=== PATIENT | female | born 1995 | race Caucasian/White ===

== ENCOUNTER 2017-03-08 17:14 | Inpatient (IN) ==
[2017-03-08] MEDS ORDERED: LR 3,000 ML ONE (17:51)
[2017-03-08] MEDS ORDERED: KEFZOL 1 GM/D5W 1 GM/50 ML IVPB IV PRN (17:58)
[2017-03-08] MEDS ORDERED: LR 1,000 ML IV SCH ×2 (17:58→19:41)
[2017-03-08] MEDS ORDERED: LR 500 ML IV ONE (17:58)
[2017-03-08] MEDS ORDERED: REGLAN PO ONE (17:58)
[2017-03-08] MEDS ORDERED: PEPCID PO ONE (17:58)
[2017-03-08] MEDS ORDERED: QUELICIN (DOSE) ONE (18:05)
[2017-03-08 18:21] LABS: MANUAL DIFF NEEDED? NO
[2017-03-08] MEDS ORDERED: FENTANYL ONE (18:22)
[2017-03-08] MEDS ORDERED: VERSED ONE (18:24)
[2017-03-08] MEDS ORDERED: DIPRIVAN 1% ONE (18:30)
[2017-03-08] MEDS ORDERED: PITOCIN 20 UNITS/LR 40 UNITS/2,000 ML IV.SOLN ONE (18:31)
[2017-03-08 18:41] LABS: BASO% 0.2 % (0.0-0.8); EOS# 0.05 X1000 (0.0-0.7); EOS% 0.4 % (0.0-10.0); HEMATOCRIT 40.7 % (37.0-47.0); IMM GRAN# 0.05 X1000 (0.0-0.04); IMM GRAN% 0.4 % (0.0-0.5); LYMPH# 1.63 X1000 (1.2-3.4); LYMPH% 12.3 % (20.5-51.1); MCH 30.8 PG (27-31); MCHC 34.4 g/dL (33-37); MCV 89.5 FL (81-99); MONO# 1.05 X1000 (0.11-0.59); MONO% 7.9 % (1.7-9.3); MPV 11.3 FL (7.4-10.4); NEUT% 78.8 % (42.2-75.2); PLT 215 X1000 (130-400); RBC 4.55 XMIL (4.2-5.4)
[2017-03-08] MEDS ORDERED: PEPCID ONE (18:41)
[2017-03-08] MEDS ORDERED: ZOFRAN ONE (18:49)
[2017-03-08] MEDS ORDERED: CYTOTEC PO PRN (19:08)
[2017-03-08] MEDS ORDERED: PITOCIN 20 UNITS/LR 20 UNITS/1,000 ML IV.SOLN IV ONE (19:08)
[2017-03-08] MEDS ORDERED: PERCOCET-5 PO PRN (19:08)
[2017-03-08] MEDS ORDERED: PITOCIN IM PRN (19:08)
[2017-03-08] MEDS ORDERED: HYDROXYZINE PO PRN (19:08)
[2017-03-08] MEDS ORDERED: M-M-R II VACCINE SUBQ ONE (19:08)
[2017-03-08] MEDS ORDERED: PHENERGAN IM PRN (19:08)
[2017-03-08] MEDS ORDERED: DULCOLAX PR PRN (19:08)
[2017-03-08] MEDS ORDERED: BOOSTRIX VACCINE IM ONE (19:08)
[2017-03-08] MEDS ORDERED: HYDROXYZINE IM PRN (19:08)
[2017-03-08] MEDS ORDERED: AMBIEN PO PRN (19:08)
[2017-03-08] MEDS ORDERED: DILAUDID ONE (19:31)
[2017-03-08] MEDS ORDERED: NARCAN IV PRN (19:41)
[2017-03-08] MEDS ORDERED: DILAUDID PCA VIAL IV PRN (19:41)
[2017-03-08] MEDS ORDERED: QUELICIN ONE (19:50)
[2017-03-08] MEDS: TORADOL IV SCH (20:01)
[2017-03-08 20:03] LABS: URINE SOURCE VOIDED
--- NOTE | 2017-03-08 20:11 | Diag Imaging Result Doc PS360 ---
EXAM: KUB ABDOMEN INDICATION: stat surgery TECHNIQUE: 2 views COMPARISON: 02/15/2015 FINDINGS: There is a general paucity of bowel gas. There is no definite obstructive pattern. There is no large volume free abdominal gas appreciated. There is no evidence of organomegaly. IMPRESSION: General paucity of bowel gas. Essentially unremarkable, otherwise. Electronically signed by Kenton Moreno 03/08/2017 8:09 PM
[2017-03-08 20:16] LABS: CLARITY VERY CLOUDY (CLEAR); COLOR AMBER; GLUCOSE URINE NEGATIVE (NEGATIVE)
[2017-03-08 20:17] LABS: BILIRUBIN URINE NEGATIVE (NEGATIVE); BLOOD URINE 2+ (NEGATIVE); LEUKOCYTES URINE 1+ (NEGATIVE); NITRITE URINE NEGATIVE (NEGATIVE); PROTEIN URINE 1+(30 mg/dL) mg/dL (NEGATIVE); UROBILINOGEN URINE 1+(1 mg/dL)
[2017-03-08 20:19] LABS: UR AMPHETAMINES QUAL NONE DETECTED (NONE DETECT); UR BARBITUATES QUAL NONE DETECTED (NONE DETECT); UR BENZODIAZEPIN QUAL NONE DETECTED (NONE DETECT); UR CANNABINOIDS QUAL NONE DETECTED (NONE DETECT); UR COCAINE QUAL NONE DETECTED (NONE DETECT); UR MDMA QUAL NONE DETECTED (NONE DETECT); UR METHADONE QUAL NONE DETECTED (NONE DETECT); UR METHAMPHETAMINE QUAL NONE DETECTED (NONE DETECT); UR OPIATES QUAL NONE DETECTED (NONE DETECT); UR OXYCODONE QUAL NONE DETECTED (NONE DETECT); UR PCP QUAL NONE DETECTED (NONE DETECT); UR TCA QUAL NONE DETECTED (NONE DETECT)
[2017-03-08] MEDS ORDERED: PERICOLACE PO SCH (21:00)
--- NOTE | 2017-03-08 23:15 | HISTORY AND PHYSICAL ---
CHIEF COMPLAINT: Abdominal pain. HISTORY OF PRESENT ILLNESS: This is a 22-year-old G1 with intrauterine around 34+ 4 weeks by stated EDC who presented to [facility] labor and delivery secondary to abdominal pain. Patient states that the pain was so bad that she needed to leave work. Denies vaginal bleeding. Notes positive movement. On presentation patient is placed on continuous electronic monitoring and persistent recurrent late decelerations were noted with minimal to moderate variability. At 5:55 stat primary low transverse section was called with operative note to follow. OBSTETRICAL HISTORY: G1 current. Patient states that she has had no complications thus far her care. 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 PAST MEDICAL HISTORY: Denies. PAST SURGICAL HISTORY: Significant for kidney stone retrieval as well as left ankle surgery. ALLERGIES: No known drug allergies. MEDICATIONS: vitamins. SOCIAL: Denies alcohol, tobacco or illicit drug use. FAMILY HISTORY: Noncontributory. REVIEW OF SYSTEMS: Otherwise negative. PHYSICAL EXAM: GENERAL: Well-developed, well-nourished white female in no acute distress. HEENT: Pupils equal, round, react to light. Extraocular muscle intact. CHEST: Clear to auscultation bilaterally. CV: Regular rate and rhythm. No murmurs, rubs, gallops. ABDOMEN: Soft, nontender, nondistended. EXTREMITIES: No clubbing, cyanosis, or edema. SKIN: No focal lesions. NEURO: No focal deficits. ASSESSMENT AND PLAN: 1. Intrauterine at 34+ 4 weeks by stated expected date confinement. 2. Nonreassuring status. PLAN: Is for stat primary low transverse section. Patient counseled regarding the risks, benefits including risks of bleeding, infection, injury to bowel and bladder as well as the potential for abnormal placentation in subsequent pregnancies. Patient states that she understands these risks, would like to proceed forward. cc: Roberto Saeed MD
[2017-03-09] MEDS: TORADOL IV SCH ×3 (02:00→13:05)
[2017-03-09] MEDS: PITOCIN 10 UNITS/LR 10 UNIT/1,000 ML IV.SOLN IV SCH ×2 (04:31→11:59)
[2017-03-09] MEDS: MYLICON PO PRN ×2 (04:40→07:21)
--- NOTE | 2017-03-09 06:25 | OPERATIVE NOTE ---
PROCEDURE DATE: 03/08/2017 PREOPERATIVE DIAGNOSIS: Intrauterine at 34+4 weeks, nonreassuring status. POSTOPERATIVE DIAGNOSIS: Intrauterine at 34+4 weeks, nonreassuring status, 20% placental abruption. PROCEDURE: Primary low transverse section. SURGEON: Dr. Saeed. ANESTHESIA: Dr. Babcock. FINDINGS: [place] uterus, normal ovaries, and bilateral fallopian tubes. Around 10-20% placental abruption. Around 30 mL of dark old clots removed after placenta was extracted. COMPLICATIONS: None apparent. ESTIMATED BLOOD LOSS: 700 mL. SPECIMENS REMOVED: Placenta, cord blood, cord segment. OPERATIVE COURSE: After the patient was identified and consent was reviewed, abdomen was prepped and draped in normal sterile fashion. General anesthesia was administered without complications. A Pfannenstiel skin incision was made and carried through the underlying layer of fascia. It was extended laterally with Alexandra scissors. The superior portion of the fascial incision was grasped with Segun clamps, elevated, and the underlying rectus muscles were dissected off with Alexandra scissors. Inferior portion performed in a similar manner. Rectus muscle was then identified and in midline. Peritoneum was identified and entered bluntly. Bladder blade was inserted. A low transverse hysterotomy was made. Membranes were ruptured. Clear fluid noted. found to be in cephalic presentation. delivered atraumatically. Nose and mouth were bulb suctioned. A 30-second cord delay was performed. The cord was clamped and cut. Infant handed off to awaiting nursing staff. Cord blood was then obtained and sent for cord gases. Placenta was then manually extracted. Around 30 mL of dark old clots were removed after the placenta was extracted. Placenta was inspected. A 10-20% abruption was noted. The uterus was exteriorized and cleaned of all clots and debris. The hysterotomy was repaired with 0 chromic in a running, locked fashion. After hemostasis was noted at the hysterotomy, the uterus was returned to the intraperitoneal space. The bladder blade was then reinserted, and again the hysterotomy was found to be hemostatic. The peritoneum was then reapproximated using 0 chromic. The fascia was closed with 0 Vicryl in a running fashion. Subcutaneous tissue was closed with plain gut suture. The skin was closed with a 4-0 Biosyn, as well as Dermabond. The patient was taken to the recovery room afterwards in stable condition. cc: Roberto Saeed MD
[2017-03-09 07:10] LABS: HEMATOCRIT 30.9 % (37.0-47.0); MCH 29.9 PG (27-31); MCHC 32.4 g/dL (33-37); MCV 92.2 FL (81-99); MPV 11.3 FL (7.4-10.4); RBC 3.35 XMIL (4.2-5.4)
[2017-03-09] MEDS: MYLICON PO SCH ×4 (09:35→21:06)
[2017-03-09] MEDS ORDERED: ZOFRAN IV PRN (10:46)
--- NOTE | 2017-03-09 12:13 | PROGRESS NOTE ---
DATE: 03/09/2017 SUBJECTIVE: She is postop day 1 from a emergent delivery due to abruption. She states she has been doing ice chips without issues. She has not been nauseated. She has not gotten up and moved around and has not eaten any food. OBJECTIVE: Vital signs: Temp 97.1 degrees, pulse 81, respiration 18, blood pressure 109/57. General: She is alert and cooperative. Neck: Supple. Lungs: Clear. Heart: Regular sinus rhythm. Abdomen: Slightly distended. Incision is dry and intact. Good bowel sounds. LABORATORY VALUES: White count 33. Suspect that is from stress. Hemoglobin and hematocrit 10/30, platelets 334. We will repeat CBC tomorrow to see if there is a drop in the white count. PLAN: Patient very much desires discharge as soon as possible. cc: MD Roberto Beck MD
[2017-03-09] MEDS ORDERED: LASIX IV ONE (16:11)
[2017-03-09] MEDS ORDERED: LR 1,000 ML IV SCH (19:08)
[2017-03-09] MEDS: PERCOCET-10 PO PRN (20:03)
[2017-03-09] MEDS: MOTRIN PO PRN (20:03)
[2017-03-10] MEDS: PERCOCET-10 PO PRN ×4 (01:01→14:16)
[2017-03-10] MEDS: MOTRIN PO PRN ×2 (04:48→14:16)
[2017-03-10 05:38] LABS: MANUAL DIFF NEEDED? NO
[2017-03-10 06:28] LABS: BASO% 0.2 % (0.0-0.8); EOS# 0.09 X1000 (0.0-0.7); EOS% 0.6 % (0.0-10.0); HEMATOCRIT 20.6 % (37.0-47.0); HEMOGLOBIN 6.6 g/dL (12.0-16.0); IMM GRAN# 0.05 X1000 (0.0-0.04); IMM GRAN% 0.3 % (0.0-0.5); LYMPH# 3.57 X1000 (1.2-3.4); LYMPH% 24.6 % (20.5-51.1); MCH 30.6 PG (27-31); MCV 95.4 FL (81-99); MONO# 1.31 X1000 (0.11-0.59); MPV 11.1 FL (7.4-10.4); NEUT% 65.3 % (42.2-75.2); PLT 203 X1000 (130-400); RBC 2.16 XMIL (4.2-5.4)
[2017-03-10] MEDS ORDERED: PEPCID PO ONE (07:16)
[2017-03-10] MEDS: MYLICON PO SCH ×3 (09:56→14:18)
[2017-03-10 12:29] VITALS: BP 141/66
--- NOTE | 2017-03-11 09:35 | DISCHARGE SUMMARY ---
ADMISSION DATE: 03/08/2017 DISCHARGE DATE: 03/10/2017 PRINCIPAL DIAGNOSES: 1. A 34-week intrauterine . 2. Nonreassuring heart tracing. 3. Placental abruption. PRINCIPAL PROCEDURE: Primary low transverse section. HOSPITAL COURSE: The patient was admitted. With a nonreassuring heart tracing and voluntary basis, she underwent a section where she was noted to have an abruption. Postoperatively she did well. Her hematocrit did drop down from 30 to 20. This was repeated and was 22 and stable. At this time she is discharged home on Percocet for pain, #30. She will be followed up in the office in a week. Discharge instructions were given. cc: MD Roberto Guillen MD
== END 2017-03-10 16:25 | disposition home or self-care (01) ==
LOC: P.OPLD 17:14 → P.LD 17:21
PROVIDERS: ADMIT Obstetrics & Gynecology; ATTEND Obstetrics & Gynecology